=== PATIENT | male | born 1935 | race Caucasian/White ===

== ENCOUNTER 2021-02-09 08:41 | Emergency (ER) | payer OTHER, SELFPAY ==
[2021-02-09 09:08] LABS: Prothrombin Time 22.6 SEC (9.9-13.0)
[2021-02-09 09:14] VITALS: BP 173/90; PULSE 82; RESP 18; TEMP 36.1; O2SAT 93; BMI 22.8
--- NOTE | 2021-02-09 09:47 | ED_ITS ---
HPI - Recheck/Abnormal Lab/Rx General Chief Complaint: Recheck/Abnormal Lab/Rx Stated Complaint: INR TEST Time Seen by Provider: 02/09/21 09:12 Source: patient Mode of arrival: ambulatory History of Present Illness HPI narrative: 85-year-old male with a past medical history of AFib on Coumadin presenting to the ED for INR recheck. Admits last week sustained skin tear to left forearm which would not stop bleeding, was seen at [facility]gent [facility] and [facility] where he had elevated INR to 6.0, was given Vit K and instructed to hold Coumadin for 2 days and repeat INR today. Reports bleeding has subsided since incident, overall feels improved, denies lightheadedness, dizziness. MD complaint: wound re-check Related Data Previous Rx's Medication Instructions Recorded bacitracin 500 unit/gram topical 1 appl TOPICAL BID #30 g 02/09/21 ointment Allergies Allergy/AdvReac Type Severity Reaction Status Date / Time penicillamine Allergy Unknown Unknown Verified 02/09/21 09:17 Penicillins Allergy Rash Verified 02/09/21 09:17 Review of Systems Review of Systems: Constitutional: No Weight loss, No Fever, No Chills ENT/Mouth: No Ear Pain, No sore throat, No Swallowing Difficulty Cardiovascular: No Chest Pain, No SOB Respiratory: No Cough, No Sputum, No Wheezing Gastrointestinal: No Nausea, No Vomiting, No Abdominal pain Genitourinary:, No Dysuria, No Hematuria, No Flank Pain Musculoskeletal: No joint pain, No Myalgias, No Joint Swelling Skin: + Skin Lesions, No rash Neuro: No Weakness, No Numbness, No Paresthesias Yes all other systems are reviewed and are negative [facility] Past Medical History Attestation statement: The following information was validated with the patient. Medical History (Updated 02/09/21 @ 09:49 by MARCUS Reagan) Afib No known health problems Social History Social History Advance Directives: Yes Advance Directives Information Provided: No Advance Directives on File: No Physical Exam Vital Signs: Vital Signs: Last Vital Signs Temp 97.0 F 02/09/21 09:14 Pulse 82 02/09/21 09:14 Resp 18 02/09/21 09:14 BP 173/90 H 02/09/21 09:14 Pulse Ox 93 02/09/21 09:14 Body Mass Index 22.8 Const: General: cooperative and healthy appearing Orientation/consciousness: patient oriented x3 Limitations: no limitations HENMT: Head: Yes normal to inspection Ears: hearing grossly normal bilaterally General nose exam: Normal external nose present Face and sinus: Yes normal facial exam Eyes: General: appearance normal, both eyes and all related structures EOM: EOMs intact bilaterally Neck: Neck: Yes normal visual inspection Resp: Effort & Inspection: normal respiratory effort and no respiratory distress Cardio: Rate: regular rate Skin: Other: Small healing skin tear noted with mild scabbing noted to left forearm with surrounding ecchymosis, no active bleeding, no drainage, no fluctuance/induration Rashes: no rashes Neuro: General: patient oriented x3 Gait exam (Neuro): Normal gait present Extrem: General: Yes normal to inspection MDM - Recheck/Abnormal Lab/Rx MDM Narrative Medical decision making narrative: 85-year-old male with a past medical history of AFib on Coumadin presenting to the ED for INR recheck. On exam VS, NAD/well- appearing, physical exam as above, no active bleeding noted from skin tear, appears appropriately healing. INR today 2.0. Instructed patient he can restart his Coumadin tonight at his normal dose, recommended repeat INR check in 1 week, discussed worrisome signs and symptoms, patient and verbalized understanding Medical Records Attestation: I reviewed the patient's medical records. Lab Data Attestation: I reviewed the patient's lab results. Labs: Lab Results 02/09/21 Range/Units 08:51 PT 22.6 H (9.9-13.0) SEC INR 2.0 H (0.9-1.1) Discharge Plan Discharge Clinical Impression: Encounter for wound re-check, Warfarin-induced coagulopathy Patient Disposition: Home, Self-Care Instructions: Blood Thinners (ED) Additional Instructions: Apply bacitracin or Neosporin at home to your wound Do not pick at the area, keep dry and clean You can re-initiate your warfarin Please get your INR rechecked in 1 week If the bleeding recurs, you have bleeding anywhere else, developed lightheadedness, or dizziness please return to the ED Prescriptions: New bacitracin 500 unit/gram ointment 1 appl topical BID Qty: 30 RF: 0 Referrals: Physician,Unknown [Primary Care Provider] - 1 week
== END 2021-02-09 10:06 | disposition home or self-care (01) ==
PROVIDERS: Emergency Provider Emergency Medicine Emergency Medical Services
DX: D68.9 Coagulation defect, unspecified (principal); I48.91 Unspecified atrial fibrillation; R79.89 Other specified abnormal findings of blood chemistry; Z79.01 Long term (current) use of anticoagulants
CPT/HCPCS: 36415; 85610; 99283

== ENCOUNTER 2021-04-21 14:03 | Emergency (ER) | payer OTHER, SELFPAY ==
--- NOTE | ~2021-04-21 | CT_ITS ---
EXAMINATION: CT HEAD WITHOUT CONTRAST CLINICAL INFORMATION: Head trauma. Anticoagulated. COMPARISON: None TECHNIQUE: Contiguous axial imaging was performed from the skull base to vertex without intravenous administration of contrast. This CT examination was performed using dose optimization techniques as appropriate, variously including the following: *Automated exposure control *Adjustment of mA and/or kV according to patient size (this includes techniques or standardized protocols for targeted exams where dose is matched to indication/reason for exam; i.e. extremities or head) *Use of iterative reconstruction technique DLP: 790 mGy-cm FINDINGS: There is no evidence of an extra-axial collection. There is no evidence of intra-axial or extra-axial hemorrhage. The ventricles and extra-axial CSF spaces are prominent suggestive of generalized atrophy. There is nonspecific periventricular white matter disease. 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 No mass, mass effect or acute infarct is seen. No skull fracture is seen. There is a scalp hematoma over the left frontal bone. The visualized paranasal sinuses, mastoid air cells and middle ears are clear. CT/CT head/brain wo con IMPRESSION: No acute intracranial findings. 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 Left scalp hematoma.
--- NOTE | ~2021-04-21 | CT_ITS ---
EXAMINATION: CT CERVICAL SPINE WITHOUT CONTRAST CLINICAL INFORMATION: Fall. Head injury. COMPARISON: None TECHNIQUE: Axial images through the cervical spine without contrast. Sagittal and coronal reconstructions on the technologist workstation were performed. This CT examination was performed using dose optimization techniques as appropriate, variously including the following: *Automated exposure control *Adjustment of mA and/or kV according to patient size (this includes techniques or standardized protocols for targeted exams where dose is matched to indication/reason for exam; i.e. extremities or head) *Use of iterative reconstruction technique DLP: 396 mGy-cm FINDINGS: Bone alignment is normal. No fracture or dislocation is seen. There is degenerative spondylosis and degenerative disc disease at C2-C3, C5-C6 and C7-T1. There is bilateral facet arthritis. There are degenerative changes of the C1 dens articulation. Prevertebral soft tissues are normal. There is bilateral carotid calcification. There is a right pleural effusion. There is a calcified nodule in the right upper lobe. CT/CT cervical spine wo con IMPRESSION: No fracture or dislocation. Degenerative changes. Right pleural effusion. Fleischner guidelines were followed.
--- NOTE | ~2021-04-21 | CT_ITS ---
EXAMINATION: CT CHEST WITHOUT CONTRAST CLINICAL INFORMATION: Right pleural effusion COMPARISON: None TECHNIQUE: Multidetector volumetric CT imaging of the chest was done. Axial MIP volume rendering provided. Sagittal and coronal reformatted images were obtained. This CT examination was performed using dose optimization techniques as appropriate, variously including the following: *Automated exposure control *Adjustment of mA and/or kV according to patient size (this includes techniques or standardized protocols for targeted exams where dose is matched to indication/reason for exam; i.e. extremities or head) *Use of iterative reconstruction technique DLP: 250 mGy-cm FINDINGS: LAUNDRY OPERATOR: Bilateral pleural effusions are seen. Degenerative changes are present in the spine. LUNGS AND PLEURA: Calcified granuloma noted in the right upper lobe. Bilateral small pleural effusions are present, right greater than left. Minimal associated lower lobe atelectasis is present. No suspicious lung masses are seen. MEDIASTINUM: The mediastinum is unremarkable. The great vessels are tortuous. No aortic aneurysm is seen. Coronary calcifications are present. No hilar or mediastinal lymphadenopathy is detected. AXILLA: No lymphadenopathy. UPPER ABDOMEN: Bilateral benign simple renal cysts are present which need no further follow-up. OSSEOUS STRUCTURES: Unremarkable. Mild degenerative changes are present spine. CT/CT chest wo con IMPRESSION: Bilateral small pleural effusions are present, right greater than left. And obvious etiology has not been found. Fleischner guidelines were followed.
[2021-04-21 14:15] VITALS: BP 146/95; PULSE 109; RESP 18; TEMP 36.8; O2SAT 97; BMI 22.8
--- NOTE | 2021-04-21 14:50 | ED_ITS ---
HPI - Fall General Chief Complaint: Fall <Jaswant Huang MD - Last Filed: 04/21/21 16:27> Stated Complaint: fall - head wound, on coumadin <Jaswant Huang MD - Last Filed: 04/21/21 16:27> Time Seen by Provider: 04/21/21 14:24 <Jaswant Huang MD - Last Filed: 04/21/21 16:27> Source: patient <Jaswant Huang MD - Last Filed: 04/21/21 16:27> Mode of arrival: ambulatory <Jaswant Huang MD - Last Filed: 04/21/21 16:27> Limitations: no limitations <Jaswant Huang MD - Last Filed: 04/21/21 16:27> History of Present Illness HPI Narrative: Patient was leaning over and he fell hitting the concrete, no LOC. Patient takes coumadin for atrial fibrillation. <Jaswant Huang MD - Last Filed: 04/21/21 16:27> MD complaint: fall <Jaswant Huang MD - Last Filed: 04/21/21 16:27> Onset (ago): hour(s) <Jaswant Huang MD - Last Filed: 04/21/21 16:27> Fall from: standing <Jawsant Huang MD - Last Filed: 04/21/21 16:27> Fall witnessed: yes, by family <Jaswant Huang MD - Last Filed: 04/21/21 16:27> Place fall occurred: home <Jaswant Huang MD - Last Filed: 04/21/21 16:27> Loss of consciousness: none <Jaswant Huang MD - Last Filed: 04/21/21 16:27> Context: tripped/slipped <Jaswant Huang MD - Last Filed: 04/21/21 16:27> Associated symptoms (after fall): headache <Jaswant Huang MD - Last Filed: 04/21/21 16:27> Related Data Home Medications: Previous Rx's Medication Instructions Recorded bacitracin 500 unit/gram topical 1 appl TOPICAL BID #30 g 02/09/21 ointment <Jaswant Huang MD - Last Filed: 04/21/21 16:27> Allergies/Adverse Reactions: Allergies Allergy/AdvReac Type Severity Reaction Status Date / Time penicillamine Allergy Unknown Unknown Verified 04/21/21 14:15 Penicillins Allergy Rash Verified 02/09/21 09:17 <Jaswant Huang MD - Last Filed: 04/21/21 16:27> Review of Systems Constitutional: Constitutional: Reports no additional constitutional complaints <Jaswant Huang MD - Last Filed: 04/21/21 16:27> Eyes: Eyes: Reports no additional eye complaints <Jaswant Huang MD - Last Filed: 04/21/21 16:27> ENT: Denies dizziness <Jaswant Huang MD - Last Filed: 04/21/21 16:27> Cardiovascular: Cardiovascular: Reports no additional cardiovascular complaints <Jaswant Huang MD - Last Filed: 04/21/21 16:27> Respiratory: Respiratory: Reports as per HPI <Jaswant Huang MD - Last Filed: 04/21/21 16:27> Gastrointestinal: Gastrointestinal: Reports no additional gastrointestinal complaints <Jaswant Huang MD - Last Filed: 04/21/21 16:27> Musculoskeletal: Musculoskeletal: Reports no additional musculoskeletal complaints <Jaswant Huang MD - Last Filed: 04/21/21 16:27> Integumentary/Breasts: Skin/Breast: Denies rash <Jaswant Huang MD - Last Filed: 04/21/21 16:27> Neurologic: Reports system reviewed and no additional complaints, except as documented, Denies dizziness and Denies Sensory deficit (Neuro) <Jaswant Huang MD - Last Filed: 04/21/21 16:27> Psychiatric: Psychiatric: Denies anxiety <Jaswant Huang MD - Last Filed: 04/21/21 16:27> PMFSH Past Medical History Medical History: Medical History Afib Hypertension <Jaswant Huang MD - Last Filed: 04/21/21 16:27> Social History Social History: Social History Alcohol intake: never Patient Tobacco Use Status: Never used Tobacco Use of substances other than those prescribed or required for medical reasons: No Advance Directives: No Advance Directives Information Provided: Yes <Jaswant Huang MD - Last Filed: 04/21/21 16:27> Physical Exam Vital Signs: Vital Signs: Last Vital Signs Temp 98.0 F 04/21/21 19:53 Pulse 85 04/21/21 19:53 Resp 20 04/21/21 19:53 BP 156/93 H 04/21/21 19:53 Pulse Ox 95 04/21/21 19:53 Body Mass Index 22.8 <Jaswant Huang MD - Last Filed: 04/21/21 16:27> Vital Signs: Last Vital Signs Temp 98.0 F 04/21/21 19:53 Pulse 85 04/21/21 19:53 Resp 20 04/21/21 19:53 BP 156/93 H 04/21/21 19:53 Pulse Ox 95 04/21/21 19:53 Body Mass Index 22.8 <Brianna Renee NP - Last Filed: 04/21/21 20:24> Const: Other: elderly male with large frontal hematoma <Jaswant Huang MD - Last Filed: 04/21/21 16:27> General: healthy appearing <Jaswant Huang MD - Last Filed: 04/21/21 16:27> Nutritional Appearance: average body habitus <Jaswant Huang MD - Last Filed: 04/21/21 16:27> Orientation/consciousness: oriented to person and patient oriented x3 <Jaswant Huang MD - Last Filed: 04/21/21 16:27> Limitations: no limitations <Jaswant Huang MD - Last Filed: 04/21/21 16:27> HENMT: Head: Yes normal to inspection <Jaswant Huang MD - Last Filed: 04/21/21 16:27> Ears: external ears normal <Jaswant Huang MD - Last Filed: 04/21/21 16:27> General nose exam: Normal external nose present <Jaswant Huang MD - Last Filed: 04/21/21 16:27> Mouth: Normal oral and palatal mucosa present and oropharynx normal <Jaswant Huang MD - Last Filed: 04/21/21 16:27> Throat: Yes posterior oropharynx normal <Jaswant Huang MD - Last Filed: 04/21/21 16:27> Eyes: General: appearance normal, both eyes and all related structures <Jaswant Huang MD - Last Filed: 04/21/21 16:27> Neck: Other: supple <Jaswant Huang MD - Last Filed: 04/21/21 16:27> Neck: Yes normal visual inspection <Jaswant Huang MD - Last Filed: 04/21/21 16:27> Chest: Chest palpation & inspection: normal inspection of the chest <Jaswant Huang MD - Last Filed: 04/21/21 16:27> Resp: Auscultation: clear to auscultation bilaterally <Jaswant Huang MD - Last Filed: 04/21/21 16:27> Cardio: Jugular venous distension: no JVD <Jaswant Huang MD - Last Filed: 04/21/21 16:27> Rate: regular rate <Jaswant Huang MD - Last Filed: 04/21/21 16:27> Rhythm: regular rhythm <Jaswant Huang MD - Last Filed: 04/21/21 16:27> Heart sounds: S1 normal heart sound present and S2 normal heart sound present <Jaswant Huang MD - Last Filed: 04/21/21 16:27> GI: Inspection: Yes normal to inspection <Jaswant Huang MD - Last Filed: 04/21/21 16:27> Palpation (GI): Soft to palpation, nontender and No hepatosplenomegaly present <Jaswant Huang MD - Last Filed: 04/21/21 16:27> Auscultation: normal bowel sounds <Jaswant Huang MD - Last Filed: 04/21/21 16:27> : General: Yes no CVA tenderness <Jaswant Huang MD - Last Filed: 04/21/21 16:27> Back/Spine/Pelvis: Back: no CVA tenderness <Jaswant Huang MD - Last Filed: 04/21/21 16:27> Skin: Other: 2 lacerations with hematoma in the left frontal area. <Jaswant Huang MD - Last Filed: 04/21/21 16:27> Neuro: General: oriented to person and patient oriented x3 <Jaswant Huang MD - Last Filed: 04/21/21 16:27> Cranial nerves: Yes CN's II-XII intact bilaterally <Jaswant Huang MD - Last Filed: 04/21/21 16:27> Motor exam (neuro): 5/5 motor strength present throughout <Jaswant Huang MD - Last Filed: 04/21/21 16:27> Sensory Exam: No Sensory deficit (Neuro) <Jaswant Huang MD - Last Filed: 04/21/21 16:27> Extrem: General: Yes normal to inspection <Jaswant Huang MD - Last Filed: 04/21/21 16:27> Psych: Appearance: grossly normal <Jaswant Huang MD - Last Filed: 04/21/21 16:27> Course Course Course Narrative: 6:00 p.m. pressure dressing that was applied by prior provider has breakthrough bleeding. Another pressure dressing applied. 6:20 p.m. breakthrough bleeding noted. Surgicel dressing applied. Will re-evaluate 30 minutes. 6:53 p.m. Surgicel dressing ineffective. Injected with 3 mL of lidocaine with epi with TXA topical dressing. Will re-evaluate and [address] indicates small pleural effusion. Discussed case with Dr Bryant, vital signs are stable, O2 sats 99% on room air. Even unlabored respirations. No respiratory distress noted. Plan is to discharge home once bleeding is controlled. INR is 2.9 7:40 p.m. bleeding is controlled. Will keep pressure dressing on and hold Coumadin for 1 day. Patient will return for wound check tomorrow. <Brianna Renee NP - Last Filed: 04/21/21 20:24> Reevaluation(s) Reevaluation #1: CT head negative but incidental finding of large pleural effusion on neck CT will obtain bloods and Chest CT <Jaswant Huang MD - Last Filed: 04/21/21 16:27> Time: 16:24 <Jaswant Huang MD - Last Filed: 04/21/21 16:27> MDM - Fall Lab Data Result diagrams: : 04/21/21 18:00 11/29/21 18:00 <Jaswant Huang MD - Last Filed: 04/21/21 16:27> Labs: Lab Results 04/21/21 04/21/21 04/21/21 Range/Units 18:00 18:00 18:00 WBC 8.3 (4.8-10.8) X10*3/uL RBC 4.76 (4.60-5.80) X10*6/uL Hgb 12.1 L (14.0-18.0) g/dl Hct 39.3 L (42.0-52.0) % MCV 82.6 (80.0-98.0) fL MCH 25.4 L (27.0-33.0) pg MCHC 30.8 L (31.0-36.0) g/dl RDW 16.7 H (11.0-16.0) % Plt Count 189 (160-400) X10*3/uL MPV 9.7 (9.4-12.4) fL Immature Gran % (Auto) 0.4 (0.0-0.4) % Neut % (Auto) 77.4 H (45-73) % Lymph % (Auto) 11.5 L (20-40) % [place] % (Auto) 9.2 (2-11) % Eos % (Auto) 0.8 (0-4) % Baso % (Auto) 0.7 (0-2) % Lymph # (Auto) 1.0 L (1.2-4.9) X10*3/uL [place] # (Auto) 0.8 (0.1-1.2) X10*3/uL Eos # (Auto) 0.1 (0.0-0.4) X10*3/uL Baso # (Auto) 0.1 (0.0-0.2) X10*3/uL Abs Immat Gran (auto) 0.03 (0.00-0.03) X10*3/uL Absolute Neuts (auto) 6.5 (2.0-8.3) x10*3/uL Absolute Nucleated RBC 0.000 (0.0-0.012) X10*3/uL Nucleated RBC % (auto) 0.0 (0.0-0.2) /100WBC PT (9.9-13.0) SEC INR (0.9-1.1) Sodium 139 (135-145) mmol/L Potassium 5.0 (3.3-5.1) mmol/L Chloride 105 (96-108) mmol/L Carbon Dioxide 28 (22-29) mmol/L Anion Gap 11 L (12-20) BUN 19 H (9-16) mg/dL Creatinine 1.02 (0.5-1.4) mg/dL Estim Creat Clear Calc 52.6 Estimated GFR > 60 Random Glucose 102 (60-115) mg/dL Calcium 9.9 (8.4-10.2) mg/dL Troponin I High Sens 14.1 (<3.5-35.0) ng/L B-Natriuretic Peptide (<100) pg/mL 04/21/21 04/21/21 Range/Units 18:00 18:12 WBC (4.8-10.8) X10*3/uL RBC (4.60-5.80) X10*6/uL Hgb (14.0-18.0) g/dl Hct (42.0-52.0) % MCV (80.0-98.0) fL MCH (27.0-33.0) pg MCHC (31.0-36.0) g/dl RDW (11.0-16.0) % Plt Count (160-400) X10*3/uL MPV (9.4-12.4) fL Immature Gran % (Auto) (0.0-0.4) % Neut % (Auto) (45-73) % Lymph % (Auto) (20-40) % [place] % (Auto) (2-11) % Eos % (Auto) (0-4) % Baso % (Auto) (0-2) % Lymph # (Auto) (1.2-4.9) X10*3/uL [place] # (Auto) (0.1-1.2) X10*3/uL Eos # (Auto) (0.0-0.4) X10*3/uL Baso # (Auto) (0.0-0.2) X10*3/uL Abs Immat Gran (auto) (0.00-0.03) X10*3/uL Absolute Neuts (auto) (2.0-8.3) x10*3/uL Absolute Nucleated RBC (0.0-0.012) X10*3/uL Nucleated RBC % (auto) (0.0-0.2) /100WBC PT 34.0 H (9.9-13.0) SEC INR 2.9 H (0.9-1.1) Sodium (135-145) mmol/L Potassium (3.3-5.1) mmol/L Chloride (96-108) mmol/L Carbon Dioxide (22-29) mmol/L Anion Gap (12-20) BUN (9-16) mg/dL Creatinine (0.5-1.4) mg/dL Estim Creat Clear Calc Estimated GFR Random Glucose (60-115) mg/dL Calcium (8.4-10.2) mg/dL Troponin I High Sens (<3.5-35.0) ng/L B-Natriuretic Peptide 122 H (<100) pg/mL <Jaswant Huang MD - Last Filed: 04/21/21 16:27> Lab Results 04/21/21 04/21/21 04/21/21 Range/Units 18:00 18:00 18:00 WBC 8.3 (4.8-10.8) X10*3/uL RBC 4.76 (4.60-5.80) X10*6/uL Hgb 12.1 L (14.0-18.0) g/dl Hct 39.3 L (42.0-52.0) % MCV 82.6 (80.0-98.0) fL MCH 25.4 L (27.0-33.0) pg MCHC 30.8 L (31.0-36.0) g/dl RDW 16.7 H (11.0-16.0) % Plt Count 189 (160-400) X10*3/uL MPV 9.7 (9.4-12.4) fL Immature Gran % (Auto) 0.4 (0.0-0.4) % Neut % (Auto) 77.4 H (45-73) % Lymph % (Auto) 11.5 L (20-40) % [place] % (Auto) 9.2 (2-11) % Eos % (Auto) 0.8 (0-4) % Baso % (Auto) 0.7 (0-2) % Lymph # (Auto) 1.0 L (1.2-4.9) X10*3/uL [place] # (Auto) 0.8 (0.1-1.2) X10*3/uL Eos # (Auto) 0.1 (0.0-0.4) X10*3/uL Baso # (Auto) 0.1 (0.0-0.2) X10*3/uL Abs Immat Gran (auto) 0.03 (0.00-0.03) X10*3/uL Absolute Neuts (auto) 6.5 (2.0-8.3) x10*3/uL Absolute Nucleated RBC 0.000 (0.0-0.012) X10*3/uL Nucleated RBC % (auto) 0.0 (0.0-0.2) /100WBC PT (9.9-13.0) SEC INR (0.9-1.1) Sodium 139 (135-145) mmol/L Potassium 5.0 (3.3-5.1) mmol/L Chloride 105 (96-108) mmol/L Carbon Dioxide 28 (22-29) mmol/L Anion Gap 11 L (12-20) BUN 19 H (9-16) mg/dL Creatinine 1.02 (0.5-1.4) mg/dL Estim Creat Clear Calc 52.6 Estimated GFR > 60 Random Glucose 102 (60-115) mg/dL Calcium 9.9 (8.4-10.2) mg/dL Troponin I High Sens 14.1 (<3.5-35.0) ng/L B-Natriuretic Peptide (<100) pg/mL 04/21/21 04/21/21 Range/Units 18:00 18:12 WBC (4.8-10.8) X10*3/uL RBC (4.60-5.80) X10*6/uL Hgb (14.0-18.0) g/dl Hct (42.0-52.0) % MCV (80.0-98.0) fL MCH (27.0-33.0) pg MCHC (31.0-36.0) g/dl RDW (11.0-16.0) % Plt Count (160-400) X10*3/uL MPV (9.4-12.4) fL Immature Gran % (Auto) (0.0-0.4) % Neut % (Auto) (45-73) % Lymph % (Auto) (20-40) % [place] % (Auto) (2-11) % Eos % (Auto) (0-4) % Baso % (Auto) (0-2) % Lymph # (Auto) (1.2-4.9) X10*3/uL [place] # (Auto) (0.1-1.2) X10*3/uL Eos # (Auto) (0.0-0.4) X10*3/uL Baso # (Auto) (0.0-0.2) X10*3/uL Abs Immat Gran (auto) (0.00-0.03) X10*3/uL Absolute Neuts (auto) (2.0-8.3) x10*3/uL Absolute Nucleated RBC (0.0-0.012) X10*3/uL Nucleated RBC % (auto) (0.0-0.2) /100WBC PT 34.0 H (9.9-13.0) SEC INR 2.9 H (0.9-1.1) Sodium (135-145) mmol/L Potassium (3.3-5.1) mmol/L Chloride (96-108) mmol/L Carbon Dioxide (22-29) mmol/L Anion Gap (12-20) BUN (9-16) mg/dL Creatinine (0.5-1.4) mg/dL Estim Creat Clear Calc Estimated GFR Random Glucose (60-115) mg/dL Calcium (8.4-10.2) mg/dL Troponin I High Sens (<3.5-35.0) ng/L B-Natriuretic Peptide 122 H (<100) pg/mL <Brianna Renee NP - Last Filed: 04/21/21 20:24> Imaging Data CT scan - head: Radiologist's impression: IMPRESSION: No acute intracranial findings. 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 Left scalp hematoma. <Jaswant Huang MD - Last Filed: 04/21/21 16:27> Discharge Plan Discharge Clinical Impression: Concussion without loss of consciousness Qualifiers: Encounter type: initial encounter Qualified Code(s): S06.0X0A - Concussion without loss of consciousness, initial encounter Abrasion of forehead Qualifiers: Encounter type: initial encounter Qualified Code(s): S00.81XA - Abrasion of other part of head, initial encounter <Jaswant Huang MD - Last Filed: 04/21/21 16:27> Patient Disposition: Home, Self-Care <Jaswant Huang MD - Last Filed: 04/21/21 16:27> Instructions: Concussion (ED), Abrasion (ED), Post Concussion Syndrome (ED) <Jaswant Huang MD - Last Filed: 04/21/21 16:27> Additional Instructions: You were evaluated for injury sustained from a head injury. Please keep the pressure dressing in place. Return tomorrow for evaluation. We updated your Tdap vaccine today. Hold your Coumadin tonight and tomorrow. Thank you for choosing this emergency department for evaluation. Please follow-up with primary care physician as needed. Return to the emergency department for any new, concerning, or worsening symptoms. <Jaswant Huang MD - Last Filed: 04/21/21 16:27> Prescriptions: No Action bacitracin 500 unit/gram ointment 1 appl topical BID Qty: 30 RF: 0 <Jaswant Huang MD - Last Filed: 04/21/21 16:27> Interventions: ED Discharge Assessment Last Done: 04/21/21 20:09 <Jaswant Huang MD - Last Filed: 04/21/21 16:27> Discharge Date/Time: 04/21/21 20:23 <Jaswant Huang MD - Last Filed: 04/21/21 16:27>
[2021-04-21 16:00] VITALS: BP 140/93; PULSE 101; RESP 16; TEMP 36.4; O2SAT 97
[2021-04-21 16:21] VITALS: PULSE 78; RESP 18; O2SAT 97
--- NOTE | 2021-04-21 16:22 | ECG_ITS ---
Test Reason : FALL Blood Pressure : / mmHG Vent. Rate : 098 BPM Atrial Rate : 000 BPM P-R Int : 000 ms QRS Dur : 080 ms QT Int : 340 ms P-R-T Axes : 000 004 009 degrees QTc Int : 434 ms Atrial fibrillation RSR' or QR pattern in V1 suggests right ventricular conduction delay Abnormal ECG No previous ECGs available Referred By: Jaswant Huang Electronically Signed By:GALLITO LIMA MD
[2021-04-21 18:00] VITALS: BP 162/99; PULSE 93; RESP 16; TEMP 36.1; O2SAT 99
[2021-04-21 18:08] LABS: MANUAL DIFF FLAG NO
[2021-04-21 18:09] LABS: Basophils Absolute Auto 0.1 X10*3/uL (0.0-0.2); Basophils Percent Auto 0.7 % (0-2); Eosinophils Absolute Auto 0.1 X10*3/uL (0.0-0.4); Eosinophils Percent Auto 0.8 % (0-4); Hematocrit 39.3 % (42.0-52.0); Hemoglobin 12.1 g/dl (14.0-18.0); Imm Gran Abs Auto 0.03 X10*3/uL (0.00-0.03); Imm Gran Pct Auto 0.4 % (0.0-0.4); Lymphocytes Percent Auto 11.5 % (20-40); Mean Corpuscular HGB Conc 30.8 g/dl (31.0-36.0); Mean Corpuscular Hemoglobin 25.4 pg (27.0-33.0); Mean Corpuscular Volume 82.6 fL (80.0-98.0); Mean Platelet Volume 9.7 fL (9.4-12.4); Monocytes Absolute Auto 0.8 X10*3/uL (0.1-1.2); Monocytes Percent Auto 9.2 % (2-11); Neutrophils Absolute Auto 6.5 x10*3/uL (2.0-8.3); Neutrophils Percent Auto 77.4 % (45-73); Platelet Count 189 X10*3/uL (160-400); Red Blood Count 4.76 X10*6/uL (4.60-5.80); Red Cell Distribution Width 16.7 % (11.0-16.0); White Blood Count 8.3 X10*3/uL (4.8-10.8)
[2021-04-21 18:22] LABS: INTERNATIONAL NORM RATIO 2.9 (0.9-1.1)
[2021-04-21 18:23] LABS: Anion Gap 11 (12-20); Blood Urea Nitrogen 19 mg/dL (9-16); Calcium 9.9 mg/dL (8.4-10.2); Carbon Dioxide 28 mmol/L (22-29); Chloride 105 mmol/L (96-108); Creatinine Clr Calc Pharmacy 52.6; Estimated Glomerular Filt Rate > 60; Glucose Random 102 mg/dL (60-115); Sodium 139 mmol/L (135-145)
[2021-04-21 18:28] LABS: B Type Natriuretic Peptide 122 pg/mL (<100); Troponin-I High Sensitivity 14.1 ng/L (<3.5-35.0)
[2021-04-21] MEDS: Diphth,Pertus(ACell),Tet Adult 0.5 ML SYRINGE IM (18:43)
[2021-04-21] MEDS: Tranexamic Acid 1,000 MG/10 ML VIAL 500 MG IRRIGATION (18:52)
[2021-04-21 19:53] VITALS: BP 156/93; PULSE 85; RESP 20; TEMP 36.7; O2SAT 95
== END 2021-04-21 20:23 | disposition home or self-care (01) ==
PROVIDERS: Emergency Provider Emergency Medicine
DX: S06.0X0A Concussion without loss of consciousness, initial encounter (principal); S00.81XA Abrasion of other part of head, initial encounter; S01.81XA Laceration without foreign body of other part of head, initial encounter; W01.0XXA Fall on same level from slipping, tripping and stumbling without subsequent striking against object, initial encounter; R93.0 Abnormal findings on diagnostic imaging of skull and head, not elsewhere classified; J90 Pleural effusion, not elsewhere classified; I48.91 Unspecified atrial fibrillation; I10 Essential (primary) hypertension; Y93.9 Activity, unspecified; Y92.019 Unspecified place in single-family (private) house as the place of occurrence of the external cause; Y99.9 Unspecified external cause status; Z79.01 Long term (current) use of anticoagulants
CPT/HCPCS: 12011; 36415; 70450; 71250; 72125; 80048; 83880; 84484; 85025; 85610; 90471; 90715; 93005; 99285

== ENCOUNTER 2021-04-22 09:30 | Emergency (ER) | payer OTHER, SELFPAY ==
[2021-04-22 10:03] VITALS: BP 129/79; PULSE 98; RESP 18; TEMP 36.3; O2SAT 98; BMI 21.4
--- NOTE | 2021-04-22 11:32 | ED_ITS ---
HPI - Recheck/Abnormal Lab/Rx General Chief Complaint: Wound/Laceration Stated Complaint: wound check Time Seen by Provider: 04/22/21 10:44 Source: patient Mode of arrival: ambulatory Limitations: no limitations History of Present Illness HPI narrative: 85-year-old male who is currently on Coumadin presenting for wound check after he was instructed to come here after being seen here yesterday with head injury no loss of consciousness and had a negative CT scan of head. They applied a dressing due to he had active bleeding and instructed him to not remove the dressing and to not take his Coumadin yesterday and today and he reports he did not take the Coumadin yesterday or today. He denies any new symptoms. Denies any other complaints or concerns at this time. complaint: wound re-check Initial visit (ago): day(s) (1) Initial visit for: other (skin abrasion ) Returns today for: wound recheck Symptoms since prior visit: no new symptoms Context: planned re-check Associated symptoms: none Treatments prior to arrival: other (See above) Related Data Previous Rx's Medication Instructions Recorded bacitracin 500 unit/gram topical 1 appl TOPICAL BID #30 g 02/09/21 ointment Allergies Allergy/AdvReac Type Severity Reaction Status Date / Time penicillamine Allergy Unknown Unknown Verified 04/21/21 14:15 Penicillins Allergy Rash Verified 02/09/21 09:17 Review of Systems Review of Systems: Constitutional : No Fever, No Chills, Cardiovascular : No Chest Pain, No SOB Respiratory : No Dyspnea Gastrointestinal : No abdominal pain Musculoskeletal : No Joint Swelling Skin : positive skin abrasion/laceration, No Foreign bodies, No rash, No surrounding erythema Neuro : No Weakness, No Numbness/tingling Psych : No SI/HI/thoughts of self injury Yes all other systems are reviewed and are negative [facility] Past Medical History Attestation statement: The following information was validated with the patient. Medical History Afib Hypertension Social History Social History Alcohol intake: never Patient Tobacco Use Status: Never used Tobacco Advance Directives: No Physical Exam Vital Signs: Vital Signs: Last Vital Signs Temp 97.4 F 04/22/21 10:03 Pulse 98 04/22/21 10:03 Resp 18 04/22/21 10:03 BP 129/79 04/22/21 10:03 Pulse Ox 98 04/22/21 10:03 Body Mass Index 21.4 vital signs have been reviewed as normal and appeared to be correct. Blood pressure normal Heart rate normal. Respiration rate normal. Temperature normal. Oxygen saturation normal. Appearance: Alert. Oriented X3. No acute distress. Head: To the left forehead patient had a bulky dressing and when I removed it with normal saline he had mild active bleeding from what it looks like an abrasion/puncture wound with ecchymosis noted. No foreign bodies or streaking/fluctuance or signs of infection noted. The rest of the external exam is within normal limits. Eyes: PERRLA. EOMI. Conjunctiva and sclera normal. Eyelids normal. ENT: Pharynx normal. Uvula midline. Moist mucous membranes. Neck: Normal inspection. Neck supple. FROM. CVS: Normal heart rate and rhythm. Respiratory: No respiratory distress. Painless inspiration. Skin: Skin warm and dry. Normal skin color. Normal skin turgor. No rashes/lesions/lacerations noted. Extremities: Extremities exhibit normal range of motion. Extremities nontender. Neuro: Oriented X 3. No motor deficit. No sensory deficit. Reflexes normal. Normal steady gait. No focal neuro deficits noted. Vascular: + radial pulses/+ 2 distal pedal pulses/+2 dorsalis pedis b/l. Normal cap refill. No cyanosis noted to upper extremity nails and lower extremity toes nails. Course Course Course Narrative: 85-year-old male who is currently on Coumadin presenting for wound check after he was instructed to come here after being seen here yesterday with head injury no loss of consciousness and had a negative CT scan of head. They applied a dressing due to he had active bleeding and instructed him to not remove the dressing and to not take his Coumadin yesterday and today and he reports he did not take the Coumadin yesterday or today. He denies any new symptoms. Denies any other complaints or concerns at this time. I removed the dressing with normal sailing and he had mild active bleeding then I placed pressure and the bleeding resolved I applied some Dermabond and waited approximately 35-40 minutes and patient does not have any active bleeding at this time. Will DC home with instructions return if any new or worsening symptoms to follow up with primary care provider. Patient understands agrees with this plan. MDM - Recheck/Abnormal Lab/Rx Medical Records Attestation: I reviewed the patient's medical records. Discharge Plan Discharge Clinical Impression: Abrasion Patient Disposition: Home, Self-Care Instructions: Skin Adhesive Care (ED), Skin Tear (ED) Prescriptions: No Action bacitracin 500 unit/gram ointment 1 appl topical BID Qty: 30 RF: 0 Referrals: Physician,Nonstaff [Primary Care Provider] - 2 days (your pcp) Print Language: Palauan
== END 2021-04-22 11:46 | disposition home or self-care (01) ==
PROVIDERS: Emergency Provider Emergency Medicine
DX: Z48.00 Encounter for change or removal of nonsurgical wound dressing (principal); S00.91XD Abrasion of unspecified part of head, subsequent encounter; X58.XXXD Exposure to other specified factors, subsequent encounter; I48.91 Unspecified atrial fibrillation; I10 Essential (primary) hypertension
CPT/HCPCS: 99283